=== PATIENT | female | born 1990 | race Caucasian/White ===

== ENCOUNTER 2020-10-05 18:06 | Emergency (ER) | payer OTHER ==
--- NOTE | 2020-10-05 18:09 | ERPHSYRPT ---
- History of Present Illness Time Seen by Provider: 10/05/20 18:08 Historian: patient Exam Limitations: no limitations Physician History: This is an anxious overweight 29-year-old white female with a history of asthma who smokes approximately 3 cigarettes a day and has a family history of coronary artery disease and presents with chest pain that began yesterday at 9 AM. Patient herself has never been diagnosed with any cardiac disease. She is not short of breath. She has had no fever or chills. She has no abdominal pain. She has no nausea vomiting or diarrhea. Her chest pain is described as an ache that is central substernal and nonradiating. Patient has been up and active in terms of walking and standing but has not been exerting herself. Patient states that she has had chest pains in the past but never this type of chest pain that is lasted for so long. She has no cough Timing/Duration: yesterday Quality: aching Location: substernal, central Chest Pain Radiation: no radiation Severity of Pain-Max: moderate Severity of Pain-Current: mild Modifying Factors: Improves With: nothing Associated Symptoms: denies symptoms Prior Chest Pain/Cardiac Workup: no prior chest pain, no prior cardiac workup Nitro Today/Relief: no nitro taken today Aspirin Treatment Today: no aspirin today Allergies/Adverse Reactions: adhesive tape Allergy (Verified 10/05/20 18:16) Hives amoxicillin Allergy (Verified 10/05/20 18:16) Tightness of Throat Penicillins Allergy (Verified 10/05/20 18:16) Tightness of Throat tramadol Allergy (Verified 10/05/20 18:16) Swelling of Tongue and Lips Home Medications: Albuterol 2.5 mg/3 ml Neb [Proventil 2.5 mg/3 ml Neb] 2.5 mg IH DAILY PRN PRN 10/05/20 [History] Albuterol 8 gm Mdi Hfa [Ventolin Hfa MDI] 8 gm IH DAILY PRN PRN 10/05/20 [History] Budesonide/Formoterol Fumarate [Symbicort 80-4.5 Mcg Inhaler] 10.2 gm IH DAILY PRN PRN 10/05/20 [History] Travel Risk - International Travel Have you traveled outside of the country in past 3 weeks: No - Coronavirus Screening Are you exhibiting any of the following symptoms?: No Close contact with a COVID-19 positive Pt in past 14-21 Days: No - Review of Systems Constitutional: No Symptoms Eyes: No Symptoms Ears, Nose, & Throat: No Symptoms Respiratory: No Symptoms Cardiac: Chest Pain Abdominal/Gastrointestinal: No Symptoms Genitourinary Symptoms: No Symptoms Musculoskeletal: No Symptoms Skin: No Symptoms Neurological: No Symptoms Psychological: No Symptoms Endocrine: No Symptoms Hematologic/Lymphatic: No Symptoms Immunological/Allergic: No Symptoms All Other Systems: Reviewed and Negative - Past Medical History Pertinent Past Medical History: Yes Respiratory History: Asthma Endocrine Medical History: No Pertinent History Musculoskeletal History: No Pertinent History GI Medical History: No Pertinent History History: No Pertinent History Psycho-Social History: No Pertinent History Female Reproductive Disorders: No Pertinent History - Past Surgical History Past Surgical History: Yes - Nursing Vital Signs Nursing Vital Signs: Initial Vital Signs Temperature 97.1 F 10/05/20 18:08 Pulse Rate 70 10/05/20 18:08 Pain Scale Pain Intensity 8 - Physical Exam General Appearance: no apparent distress, alert, anxiety, obese Eye Exam: PERRL/EOMI, eyes nml inspection Ears, Nose, Throat Exam: normal ENT inspection, moist mucous membranes Neck Exam: normal inspection, non-tender, supple, full range of motion Respiratory Exam: normal breath sounds, chest tenderness, lungs clear, airway i ntact, No respiratory distress Cardiovascular Exam: regular rate/rhythm, normal heart sounds, normal peripheral pulses Gastrointestinal/Abdomen Exam: soft, normal bowel sounds, No tenderness Pelvic Exam: not done Rectal Exam: not done Back Exam: normal inspection, normal range of motion, No CVA tenderness, No vertebral tenderness Extremity Exam: normal inspection, normal range of motion, pelvis stable Neurologic Exam: alert, oriented x 3, cooperative, practice specialist II-XII nml as tested, normal mood/affect, nml cerebellar function, nml station & gait, sensation nml Skin Exam: normal color, warm, dry Lymphatic Exam: No adenopathy SpO2 Interpretation: normal O2 Delivery: Room Air - Course Nursing assessment & vital signs reviewed: Yes EKG Interpreted by Me: RATE (70), Sinus Rhythm, NORMAL AXIS, NORMAL INTERVALS, NORMAL QRS, NORMAL ST-T, Other (No acute ischemic changes. No comparison EKG available.) Ordered Tests: Active Orders 24 hr Category Date Time Status Area Loss Prevention Manager STAT Care 10/05/20 18:20 Active EKG-ER Only STAT Care 10/05/20 18:20 Active IV Insertion STAT Care 10/05/20 18:20 Active Pulse Oximetry (ED) STAT Care 10/05/20 18:20 Active CHEST 1 VIEW (PORTABLE) Stat Exams 10/05/20 18:20 Taken CBC W DIFF Stat Lab 10/05/20 18:42 Completed CMP Stat Lab 10/05/20 18:42 Completed D-DIMER QUANTITATIVE Stat Lab 10/05/20 18:42 Completed NT PRO BNP Stat Lab 10/05/20 18:42 Completed PROTIME WITH INR Stat Lab 10/05/20 18:42 Completed TROPONIN Q3H Lab 10/05/20 18:42 Completed TROPONIN Q3H Lab 10/05/20 21:30 Ordered TROPONIN Q3H Lab 10/06/20 00:30 Ordered TROPONIN Q3H Lab 10/06/20 03:30 Ordered TROPONIN Q3H Lab 10/06/20 06:30 Ordered Medication Summary Discontinued Medications Generic Name Dose Route Start Last Admin Trade Name Freq PRN Reason Stop Dose Admin Aspirin 324 mg 10/05/20 18:20 10/05/20 18:28 Baby Aspirin 81 Mg Chew PO 10/05/20 18:21 324 mg STAT ONE Administration Aspirin Confirm 10/05/20 18:27 Baby Aspirin 81 Mg Chew Administered 10/05/20 18:28 Dose 324 mg .ROUTE .STK-MED ONE Lab/Rad Data: Laboratory Result Diagrams 10/05/20 18:42 10/05/20 18:42 Laboratory Results 10/05/20 10/05/20 10/05/20 Range/Units 18:42 18:42 18:42 WBC (4.0-10.5) K/mm3 RBC (4.1-5.4) M/mm3 Hgb (12.0-16.0) gm/dl Hct (35-47) % MCV (78-100) fl MCH (26-32) pg MCHC (32-36) g/dl RDW (11.5-14.0) % Plt Count (150-450) K/mm3 MPV (7.5-11.0) fl Gran % (36.0-66.0) % Eos # (Auto) (0-0.5) Absolute Lymphs (auto) (1.0-4.6) Absolute Monos (auto) (0.0-1.3) Lymphocytes % (24.0-44.0) % Monocytes % (0.0-12.0) % Eosinophils % (0.00-5.0) % Basophils % (0.0-0.4) % Absolute Granulocytes (1.4-6.9) Basophils # (0-0.4) PT 14.0 H (9.95-12.35) SECONDS INR 1.24 (0.8-3.0) D-Dimer 259 (215-500) ng/mL Sodium 137 (137-145) mmol/L Potassium 3.9 (3.5-5.1) mmol/L Chloride 110 H (98-107) mmol/L Carbon Dioxide 18 L (22-30) mmol/L Anion Gap 13.5 (5-15) MEQ/L BUN 11 (7-17) mg/dL Creatinine 0.60 (0.52-1.04) mg/dL Estimated GFR > 60.0 ML/MIN Glucose 106 (74-106) mg/dL Calcium 8.9 (8.4-10.2) mg/dL Total Bilirubin 0.40 (0.2-1.3) mg/dL AST 56 H (14-36) U/L ALT 100 H (0-35) U/L Alkaline Phosphatase 77 (38-126) U/L Troponin I < 0.012 (0.000-0.034) ng/mL NT-Pro-B Natriuret Pep 56.9 (0-450) pg/mL Serum Total Protein 6.9 (6.3-8.2) g/dL Albumin 4.3 (3.5-5.0) g/dL 10/05/20 Range/Units 18:42 WBC 8.7 (4.0-10.5) K/mm3 RBC 4.24 (4.1-5.4) M/mm3 Hgb 11.7 L (12.0-16.0) gm/dl Hct 37.5 (35-47) % MCV 88.4 (78-100) fl MCH 27.6 (26-32) pg MCHC 31.2 L (32-36) g/dl RDW 16.0 H (11.5-14.0) % Plt Count 283 (150-450) K/mm3 MPV 10.3 (7.5-11.0) fl Gran % 64.7 (36.0-66.0) % Eos # (Auto) 0.31 (0-0.5) Absolute Lymphs (auto) 1.71 (1.0-4.6) Absolute Monos (auto) 1.01 (0.0-1.3) Lymphocytes % 19.7 L (24.0-44.0) % Monocytes % 11.7 (0.0-12.0) % Eosinophils % 3.6 (0.00-5.0) % Basophils % 0.3 (0.0-0.4) % Absolute Granulocytes 5.60 (1.4-6.9) Basophils # 0.03 (0-0.4) PT (9.95-12.35) SECONDS INR (0.8-3.0) D-Dimer (215-500) ng/mL Sodium (137-145) mmol/L Potassium (3.5-5.1) mmol/L Chloride (98-107) mmol/L Carbon Dioxide (22-30) mmol/L Anion Gap (5-15) MEQ/L BUN (7-17) mg/dL Creatinine (0.52-1.04) mg/dL Estimated GFR ML/MIN Glucose (74-106) mg/dL Calcium (8.4-10.2) mg/dL Total Bilirubin (0.2-1.3) mg/dL AST (14-36) U/L ALT (0-35) U/L Alkaline Phosphatase (38-126) U/L Troponin I (0.000-0.034) ng/mL NT-Pro-B Natriuret Pep (0-450) pg/mL Serum Total Protein (6.3-8.2) g/dL Albumin (3.5-5.0) g/dL - Progress Progress: improved, re-examined Air Movement: good Progress Note: 10/05/20 19:18 Chest x-ray left mediastinal early infiltrate versus increased markings Blood Culture(s) Obtained: No Antibiotics given: No Counseled pt/family regarding: lab results, diagnosis, need for follow-up, rad results - Departure Departure Disposition: Home Clinical Impression: Non-cardiac chest pain, Infiltrate of left lung present on chest x-ray Condition: Stable Critical Care Time: No Referrals: DOCTOR,NO FAMILY [Primary Care Provider] - Additional Instructions: Drink plenty of fluids. Take your medication as prescribed. Follow-up with your primary care physician for further management and evaluation. Stop smoking. Do not expose yourself to any type of smoke. Prescriptions: Cefdinir 300 mg PO BID 7 Days #14 capsule
[2020-10-05 18:16] VITALS: PULSE 70
[2020-10-05] MEDS ORDERED: BABY ASPIRIN 81 MG CHEW ONE (18:27)
[2020-10-05] MEDS: BABY ASPIRIN 81 MG CHEW PO ONE (18:28)
[2020-10-05 18:45] LABS: BASOPHIL % 0.3 % (0.0-0.4); Basophil (Absolute #) 0.03 (0-0.4); Eosinophil % 3.6 % (0.00-5.0); Eosinophil (Absolute #) 0.31 (0-0.5); Hematocrit 37.5 % (35-47); Hemoglobin 11.7 gm/dl (12.0-16.0); Lymphocyte (Absolute #) 1.71 (1.0-4.6); Lymphocytes % 19.7 % (24.0-44.0); Mean Cell Volume 88.4 fl (78-100); Mean Corpuscular Hemoglobin 27.6 pg (26-32); Mean Corpuscular Hgb Concent. 31.2 g/dl (32-36); Mean Platelet Volume 10.3 fl (7.5-11.0); Monocyte (Absolute #) 1.01 (0.0-1.3); Monocytes % 11.7 % (0.0-12.0); Neutrophil % 64.7 % (36.0-66.0); Platelet Count 283 K/mm3 (150-450); Red Blood Count 4.24 M/mm3 (4.1-5.4); White Blood Count 8.7 K/mm3 (4.0-10.5)
[2020-10-05 18:55] LABS: INR 1.24 (0.8-3.0)
[2020-10-05 19:09] LABS: ALBUMIN 4.3 g/dL (3.5-5.0); ALKALINE PHOSPHATASE 77 U/L (38-126); ANION GAP 13.5 MEQ/L (5-15); BLOOD UREA NITROGEN 11 mg/dL (7-17); CHLORIDE 110 mmol/L (98-107); Calcium 8.9 mg/dL (8.4-10.2); Carbon Dioxide 18 mmol/L (22-30); EST GLOMERULAR FILTRATION RATE > 60.0 ML/MIN; Glucose 106 mg/dL (74-106); NT PRO BNP 56.9 pg/mL (0-450); Potassium 3.9 mmol/L (3.5-5.1); SGOT/AST 56 U/L (14-36); SGPT/ALT 100 U/L (0-35); SODIUM 137 mmol/L (137-145); Total Protein 6.9 g/dL (6.3-8.2)
[2020-10-05 19:22] VITALS: O2SAT 98
[2020-10-05] MEDS ORDERED: ROCEPHIN 1 Gm-D5w 50 ml Bag** 1 G/50 ML IVPB IV ONE (19:32)
[2020-10-05] MEDS: ROCEPHIN 1 Gm-D5w 50 ml Bag** 1 G/50 ML IVPB IV STA (19:34)
--- NOTE | 2020-10-06 08:38 | XRAY ---
Indication: Chest pain. Comparison: None Portable chest demonstrates hazy left lung air space opacity without consolidation/large effusion. Remaining heart and bony thorax normal.
== END 2020-10-05 20:07 | disposition home or self-care (01) ==
LOC: ED 18:06
DX: R07.89 Other chest pain (principal); R91.8 Other nonspecific abnormal finding of lung field
CPT/HCPCS: 36000; 36415; 71045; 80053; 83880; 84484; 85025; 85379; 85610; 93005; 93041; 94760; 96365; 99284; J0696; A9270-GY

== ENCOUNTER 2020-10-11 01:34 | Emergency (ER) | payer OTHER ==
--- NOTE | 2020-10-11 02:21 | ERPHSYRPT ---
- History of Present Illness Source: patient Exam Limitations: no limitations Patient Subjective Stated Complaint: pt states she fell and landed on her rt hand with her knee. states she has pain in her rt wrsit, hand, and middle finger Triage Nursing Assessment: pt alert and oriented, answers questions approp. pt ambulatory with steady gait noted. respirations nonlabored. skin warm and dry. no bruising or swelling noted to rt hand and wrist. cap refill and radial pulse wnl. Physician History: 29 yo wf w R wrist/R 3rd digit pain after tripping over dog at home prior to arrival. Pt is R handed and denies previous/other injuries. Occurred: just prior to arrival Method of Injury: fell Quality: constant Severity of Pain-Max: moderate Severity of Pain-Current: moderate Extremities Pain Location: wrist: right, 3rd finger: right Modifying Factors: Improves With: movement Associated Symptoms: none Allergies/Adverse Reactions: adhesive tape Allergy (Verified 10/05/20 18:16) Hives amoxicillin Allergy (Verified 10/05/20 18:16) Tightness of Throat Penicillins Allergy (Verified 10/05/20 18:16) Tightness of Throat tramadol Allergy (Verified 10/05/20 18:16) Swelling of Tongue and Lips Home Medications: Albuterol 2.5 mg/3 ml Neb [Proventil 2.5 mg/3 ml Neb] 2.5 mg IH DAILY PRN PRN 10/05/20 [History] Albuterol 8 gm Mdi Hfa [Ventolin Hfa MDI] 8 gm IH DAILY PRN PRN 10/05/20 [History] Budesonide/Formoterol Fumarate [Symbicort 80-4.5 Mcg Inhaler] 10.2 gm IH DAILY PRN PRN 10/05/20 [History] Hx Tetanus, Diphtheria Vaccination/Date Given: Yes Hx Influenza Vaccination/Date Given: No Hx Pneumococcal Vaccination/Date Given: No Immunizations Up to Date: Yes Travel Risk - International Travel Have you traveled outside of the country in past 3 weeks: No - Coronavirus Screening Are you exhibiting any of the following symptoms?: No Close contact with a COVID-19 positive Pt in past 14-21 Days: No - Vaccine Status Have you recieved a Covid-19 vaccination: No - Review of Systems Constitutional: No Symptoms Eyes: No Symptoms Ears, Nose, & Throat: No Symptoms Respiratory: No Symptoms Cardiac: No Symptoms Abdominal/Gastrointestinal: No Symptoms Genitourinary Symptoms: No Symptoms Skin: No Symptoms Neurological: No Symptoms Psychological: No Symptoms Endocrine: No Symptoms Hematologic/Lymphatic: No Symptoms Immunological/Allergic: No Symptoms - Past Medical History Pertinent Past Medical History: Yes Respiratory History: Asthma, COPD Endocrine Medical History: No Pertinent History Musculoskeletal History: No Pertinent History GI Medical History: No Pertinent History History: No Pertinent History Psycho-Social History: Anxiety Female Reproductive Disorders: No Pertinent History Other Medical History: PTSD, severe anxiety - Past Surgical History Past Surgical History: Yes Gastrointestinal: Cholecystectomy Female Surgical History: Other Other Surgical History: tubal clamps - Social History Smoking Status: Current every day smoker How long have you smoked: years Exposure to second hand smoke: No Drug Use: none Patient Lives Alone: No Significant Family History: no pertinent family hx - Female History Hx Last Menstrual Period: current Hx Now: No - Nursing Vital Signs Nursing Vital Signs: Initial Vital Signs Temperature 98.1 F 10/11/20 01:46 Pulse Rate 71 10/11/20 01:46 Respiratory Rate 16 10/11/20 01:46 Blood Pressure 124/76 10/11/20 01:46 O2 Sat by Pulse Oximetry 100 10/11/20 01:46 Pain Scale Pain Intensity 5 - Physical Exam General Appearance: no apparent distress Eyes, Ears, Nose, Throat Exam: normal ENT inspection Neck Exam: normal inspection (No C-spine TTP) Cardiovascular/Respiratory Exam: normal breath sounds, regular rate/rhythm Back Exam: normal inspection (No T/L-spine TTP) Shoulder Exam: normal inspection Elbow/Forearm Exam: normal inspection Wrist Exam: normal inspection (R distal radius ttp/No edema/No deformity/Good radial pulse, distal sensation, and capillary return/R 3rd digit ttp PIP, minimal edema, no erythema, no ecchymotic areas, good distal capillary return and sensation) Neuro/Tendon Exam: normal sensation, normal motor functions, normal tendon functions, responds to pain Mental Status Exam: alert, oriented x 3, cooperative Skin Exam: normal color, warm, dry SpO2 Interpretation: normal SpO2: 100 O2 Delivery: Room Air - Course Nursing assessment & vital signs reviewed: Yes - Radiology Exams Wrist X-ray Interpretation: Interpreted by me (R wrist neg per ER read) Hand X-ray Interpretation: Interpreted by me (R hand neg per ER read) Ordered Tests: Active Orders 24 hr Category Date Time Status [facility] 10/11/20 02:27 Completed Splint STAT Care 10/11/20 02:28 Completed HAND (MINIMUM 3 VIEWS) Stat Exams 10/11/20 02:22 Taken WRIST (MIN 3 VIEWS) Stat Exams 10/11/20 02:21 Taken Medication Summary Discontinued Medications Generic Name Dose Route Start Last Admin Trade Name Chantal PRN Reason Stop Dose Admin Ketorolac Tromethamine 60 mg 10/11/20 02:27 10/11/20 02:58 Toradol 30 Mg Injection IM 10/11/20 02:28 60 mg STAT ONE Administration Ketorolac Tromethamine Confirm 10/11/20 02:46 Toradol 30 Mg Injection Administered 10/11/20 02:47 Dose 60 mg .ROUTE .STK-MED ONE - Progress Progress Note: 10/11/20 02:29 60mg IM Toradol Mark wrap R wrist/Hand per nursing/NVI 10/11/20 03:18 Finger splint R 3rd digit per nursing/NVI Counseled pt/family regarding: need for follow-up, rad results - Departure Departure Disposition: Extended Care Facility Clinical Impression: Right wrist sprain, Finger contusion Condition: Stable Critical Care Time: No Referrals: DOCTOR,NO FAMILY [Primary Care Provider] - KAREN DEY AUTOMATION AND CONTROLS SUPERVISOR [NON-STAFF PHY W/O PRIVILEGES] - Instructions: Wrist Sprain (DC), Common Finger Injuries (DC) Additional Instructions: Ice for 12-24 hours Toradol as needed for pain Mark wrap for 3-4 days Finger splint for 3-4 days Return to ER as needed Prescriptions: Ketorolac Tromethamine [Toradol] 10 mg PO TID PRN #10 tablet PRN Reason: Pain
[2020-10-11] MEDS ORDERED: TORAdol 30 mg Injection IM ONE (02:27)
[2020-10-11] MEDS ORDERED: TORAdol 30 mg Injection ONE (02:46)
[2020-10-11 03:08] VITALS: BP 110/68; PULSE 67
[2020-10-11 03:19] VITALS: O2SAT 100
--- NOTE | 2020-10-11 07:28 | XRAY ---
Indication: Pain following fall. Comparison: None 3 view right wrist obtained. No bony, articular, or soft tissue abnormalities.
--- NOTE | 2020-10-11 07:28 | XRAY ---
Indication: Pain following fall. Comparison: None 3 view right hand obtained. No bony, articular, or soft tissue abnormalities.
== END 2020-10-11 03:08 | disposition home or self-care (01) ==
LOC: ED 01:34
DX: S60.031A Contusion of right middle finger without damage to nail, initial encounter (principal); W01.198A Fall on same level from slipping, tripping and stumbling with subsequent striking against other object, initial encounter; Y93.K1 Activity, walking an animal; Y92.89 Other specified places as the place of occurrence of the external cause
CPT/HCPCS: 73110; 73130; 96372; 99284; J1885

== ENCOUNTER 2021-02-14 21:29 | Emergency (ER) | payer OTHER ==
--- NOTE | 2021-02-14 22:14 | ERPHSYRPT ---
- History of Present Illness Time Seen by Provider: 02/14/21 22:14 Source: patient Patient Subjective Stated Complaint: pt states she has been having rib pain off and on for the last few months. states today her pain was not relieved with ibuprofen Triage Nursing Assessment: pt alert and oriented, answers questions approp. pt ambulatory with steady gait noted. respirations nonlabored with lungs cta. occasional moist cough noted. skin warm and dry. Physician History: This is an obese 30-year-old white female patient of Karen Guzman who sent September 2020 has had left lateral rib pain. She denies trauma to this area. Patient is a current daily smoker of cigarettes. She has a history of asthma, COPD, PTSD and severe anxiety. Patient was seen by her primary care provider in the past and she was scheduled to have a chest x-ray performed but never did follow-up to obtain it. Timing/Duration: other (Since September 2020) Cough Quality/Degree: mild Possible Cause: frequent episodes Associated Symptoms: other Allergies/Adverse Reactions: adhesive tape Allergy (Verified 02/14/21 21:41) Hives amoxicillin Allergy (Verified 02/14/21 21:41) Tightness of Throat Penicillins Allergy (Verified 02/14/21 21:41) Tightness of Throat tramadol Allergy (Verified 02/14/21 21:41) Swelling of Tongue and Lips Home Medications: Albuterol 2.5 mg/3 ml Neb [Proventil 2.5 mg/3 ml Neb] 2.5 mg IH DAILY PRN PRN 10/05/20 [History] Albuterol 8 gm Mdi Hfa [Ventolin Hfa MDI] 8 gm IH DAILY PRN PRN 10/05/20 [History] Budesonide/Formoterol Fumarate [Symbicort 80-4.5 Mcg Inhaler] 10.2 gm IH DAILY PRN PRN 10/05/20 [History] Hx Tetanus, Diphtheria Vaccination/Date Given: Yes Hx Influenza Vaccination/Date Given: No Hx Pneumococcal Vaccination/Date Given: No Immunizations Up to Date: Yes Travel Risk - International Travel Have you traveled outside of the country in past 3 weeks: No - Coronavirus Screening Are you exhibiting any of the following symptoms?: No Close contact with a COVID-19 positive Pt in past 14-21 Days: No - Vaccine Status Have you recieved a Covid-19 vaccination: No - Review of Systems Constitutional: No Symptoms Eyes: No Symptoms Ears, Nose, & Throat: No Symptoms Respiratory: No Symptoms Cardiac: No Symptoms Abdominal/Gastrointestinal: No Symptoms Genitourinary Symptoms: No Symptoms Musculoskeletal: Other (Left rib pain) Skin: No Symptoms Neurological: No Symptoms Psychological: No Symptoms Endocrine: No Symptoms Hematologic/Lymphatic: No Symptoms Immunological/Allergic: No Symptoms All Other Systems: Reviewed and Negative - Past Medical History Pertinent Past Medical History: Yes Respiratory History: Asthma, Bronchitis, COPD Endocrine Medical History: No Pertinent History Musculoskeletal History: No Pertinent History GI Medical History: No Pertinent History History: No Pertinent History Psycho-Social History: Anxiety Female Reproductive Disorders: No Pertinent History Other Medical History: PTSD, severe anxiety - Past Surgical History Past Surgical History: Yes Gastrointestinal: Cholecystectomy Female Surgical History: Other Other Surgical History: tubal clamps - Social History Smoking Status: Current every day smoker How long have you smoked: years Exposure to second hand smoke: No Drug Use: none Patient Lives Alone: No Significant Family History: no pertinent family hx - Female History Hx Last Menstrual Period: current Hx Now: No - Nursing Vital Signs Nursing Vital Signs: Initial Vital Signs Temperature 98.1 F 02/14/21 21:42 Pulse Rate 83 02/14/21 21:42 Respiratory Rate 18 02/14/21 21:42 Blood Pressure 118/92 02/14/21 21:42 O2 Sat by Pulse Oximetry 99 02/14/21 21:42 Pain Scale Pain Intensity 8 - Physical Exam General Appearance: no apparent distress, alert, anxiety Eye Exam: PERRL/EOMI, eyes nml inspection Ears, Nose, Throat Exam: normal ENT inspection, moist mucous membranes Neck Exam: normal inspection, non-tender, supple, full range of motion Respiratory Exam: normal breath sounds, lungs clear, airway intact, diminished breath sounds, No chest tenderness, No respiratory distress Cardiovascular Exam: regular rate/rhythm, normal heart sounds, normal peripheral pulses Gastrointestinal/Abdomen Exam: soft, normal bowel sounds, No tenderness Pelvic Exam: not done Rectal Exam: not done Back Exam: normal inspection, normal range of motion, No CVA tenderness, No vertebral tenderness Extremity Exam: normal inspection, normal range of motion, pelvis stable Neurologic Exam: alert, oriented x 3, cooperative, 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, normal mood/affect, nml cerebellar function, nml station & gait, sensation nml Skin Exam: normal color, warm, dry Lymphatic Exam: No adenopathy SpO2 Interpretation: normal SpO2: 99 O2 Delivery: Room Air - Course Nursing assessment & vital signs reviewed: Yes Ordered Tests: Active Orders 24 hr Category Date Time Status CHEST 1 VIEW (PORTABLE) Stat Exams 02/14/21 22:14 Ordered Medication Summary Generic Name Dose Route Start Last Admin Trade Name Chantal PRN Reason Stop Dose Admin Hydrocodone Bitart/Acetaminophen 1 tab 02/14/21 22:41 [place] 5/325 Mg PO 02/14/21 22:42 STAT ONE Methylprednisolone Sodium 0 mg 02/14/21 22:41 Succinate 125 mg/ Sterile IM 02/14/21 22:42 Water 2 ml STAT ONE Orphenadrine Citrate 60 mg 02/14/21 22:42 Norflex 60 Mg/2 Ml IM 02/14/21 22:43 STAT ONE - Progress Progress: re-examined, unchanged Air Movement: good Progress Note: 02/14/21 22:48 Chest x-ray shows no acute cardiopulmonary process. No obvious rib fractures Counseled pt/family regarding: diagnosis, need for follow-up, rad results - Departure Departure Disposition: Home Clinical Impression: Rib pain on left side, Musculoskeletal pain Condition: Stable Critical Care Time: No Referrals: KAREN EDWARD PAPER [employer] DRYING MACHINE OPERATOR [Primary Care Provider] - Additional Instructions: Take medication as prescribed. Follow-up with your primary provider on 02/16/2021, Prescriptions: Cyclobenzaprine HCl 10 mg [Cyclobenzaprine 10 MG] 10 mg PO TID #10 tablet Prednisone 10 mg [Deltasone 10 mg] 10 mg PO TID #12 tablet
[2021-02-14] MEDS ORDERED: NORCO 5/325 MG PO ONE (22:41)
[2021-02-14] MEDS ORDERED: solu-MEDROL 125 MG, Sterile H2O 10 ml 2 ML IM ONE ×2 (22:41)
[2021-02-14] MEDS ORDERED: Norflex 60 MG/2 ML IM ONE (22:42)
[2021-02-14] MEDS ORDERED: Norflex 60 MG/2 ML ONE (22:49)
[2021-02-14] MEDS ORDERED: NORCO 5/325 MG ONE (22:50)
[2021-02-14] MEDS ORDERED: Sterile H2O 10 ml IJ ONE (22:50)
[2021-02-14] MEDS ORDERED: solu-MEDROL ONE (22:50)
[2021-02-14 23:15] VITALS: BP 121/78; PULSE 88; O2SAT 98
--- NOTE | 2021-02-15 07:52 | XRAY ---
Indication: Cough and rib pain. Comparison: October 05, 2020. Portable chest less inflated and clear. Heart is not enlarged. Bony thorax intact. No new/acute findings.
== END 2021-02-14 23:14 | disposition home or self-care (01) ==
LOC: ED 21:29
DX: R07.81 Pleurodynia (principal); M79.18 Myalgia, other site
CPT/HCPCS: 71045; 96372; 99284; J2360; J2930; A9270-GY

== ENCOUNTER 2021-06-22 02:17 | Emergency (ER) | payer OTHER ==
[2021-06-22] MEDS ORDERED: DUONEB 0.5-3 MG/3 ml Neb IH ONE ×4 (02:32→04:07)
[2021-06-22] MEDS ORDERED: Pepcid 20 MG VIAL IV ONE ×2 (02:32→02:47)
[2021-06-22] MEDS ORDERED: solu-MEDROL 125 MG, Sterile H2O 10 ml 2 ML IV ONE ×2 (02:32)
[2021-06-22] MEDS ORDERED: Sodium Chloride 0.9% 1000 ML 1,000 ML IV SCH (02:45)
[2021-06-22] MEDS ORDERED: Sterile H2O 10 ml IJ ONE (02:47)
[2021-06-22] MEDS ORDERED: solu-MEDROL ONE (02:47)
[2021-06-22] MEDS ORDERED: Sodium Chloride 0.9% 1000 ML 1,000 ML ONE (02:47)
[2021-06-22 02:50] LABS: Absolute Neutrophil Ct (ANC) 5.44 (1.4-6.9); Basophil (Absolute #) 0.03 (0-0.4); Eosinophil (Absolute #) 0.39 (0-0.5); Hematocrit 36.6 % (35-47); Hemoglobin 11.8 gm/dl (12.0-16.0); Lymphocyte (Absolute #) 2.82 (1.0-4.6); Lymphocytes % 29.3 % (24.0-44.0); Mean Cell Volume 89.3 fl (78-100); Mean Corpuscular Hemoglobin 28.8 pg (26-32); Mean Corpuscular Hgb Concent. 32.2 g/dl (32-36); Mean Platelet Volume 10.2 fl (7.5-11.0); Monocyte (Absolute #) 0.96 (0.0-1.3); Neutrophil % 56.4 % (36.0-66.0); Platelet Count 301 K/mm3 (150-450); Red Cell Distribution Width 15.2 % (11.5-14.0); White Blood Count 9.6 K/mm3 (4.0-10.5)
--- NOTE | 2021-06-22 03:00 | ERPHSYRPT ---
- History of Present Illness Time Seen by Provider: 06/22/21 02:55 Source: patient Exam Limitations: no limitations Patient Subjective Stated Complaint: cough, headache, sob Triage Nursing Assessment: pt c/o cough, headache, sob. Pt was positive for covid on 06/03/21 and hasn't been able to get rid of the cough or sob. Pt c/o mid sternal chest pain, stating "it feels like someone is using it as a punching bag". Lungs clear ant and post, dry, hacking non-prod cough. Physician History: pt is SP Covid testing + on Jun 03, but having persisting cough and SOBreath tonight with prior history of chronic resp condition Asthma/COPD and Tx AB for 'pneumonia' about 2 weeks ago as well. CHest clear. No prior known ht Dx , but + family Hx No N/V, No abd pain. No Hx trauma. NO swelling or erythema of ext. Neg homans. Timing/Duration: today (short of breath today.), day(s) (cough for days) Activities at Onset: none Severity of Dyspnea-Max: moderate Severity of Dyspnea-Current: moderate Possible Cause: frequent episodes, chronic episodes Modifying Factors: Improves With: coughing Associated Symptoms: cough, chest pain/discomfort Allergies/Adverse Reactions: adhesive tape Allergy (Verified 06/22/21 02:39) Hives paper tape amoxicillin Allergy (Verified 06/22/21 02:39) Tightness of Throat Penicillins Allergy (Verified 06/22/21 02:39) Tightness of Throat tramadol Allergy (Verified 06/22/21 02:39) Swelling of Tongue and Lips Home Medications: Albuterol 2.5 mg/3 ml Neb [Proventil 2.5 mg/3 ml Neb] 2.5 mg IH DAILY PRN PRN 10/05/20 [History] Albuterol 8 gm Mdi Hfa [Ventolin Hfa MDI] 8 gm IH DAILY PRN PRN 10/05/20 [History] Budesonide/Formoterol Fumarate [Symbicort 80-4.5 Mcg Inhaler] 10.2 gm IH DAILY PRN PRN 10/05/20 [History] Hx Tetanus, Diphtheria Vaccination/Date Given: Yes Hx Influenza Vaccination/Date Given: No Hx Pneumococcal Vaccination/Date Given: No Immunizations Up to Date: Yes Travel Risk - International Travel Have you traveled outside of the country in past 3 weeks: No - Coronavirus Screening Are you exhibiting any of the following symptoms?: Yes Symptoms: Cough: New Onset, Shortness of Breath, Headaches/Body Aches/Fatigue Close contact with a COVID-19 positive Pt in past 14-21 Days: No - Vaccine Status Have you recieved a Covid-19 vaccination: No - Review of Systems Constitutional: No Fever, No Chills Eyes: No Symptoms Ears, Nose, & Throat: No Symptoms Respiratory: Cough, Dyspnea Cardiac: Chest Pain, No Edema, No Syncope Abdominal/Gastrointestinal: No Abdominal Pain, No Nausea, No Vomiting, No Diarrhea Genitourinary Symptoms: No Dysuria Musculoskeletal: No Back Pain, No Neck Pain Skin: No Rash Neurological: No Dizziness, No Focal Weakness, No Sensory Changes Psychological: No Symptoms Endocrine: No Symptoms All Other Systems: Reviewed and Negative - Past Medical History Pertinent Past Medical History: Yes Neurological History: No Pertinent History Respiratory History: Asthma, Bronchitis, COPD, Pneumonia Endocrine Medical History: No Pertinent History Musculoskeletal History: No Pertinent History GI Medical History: No Pertinent History History: No Pertinent History Psycho-Social History: Anxiety Female Reproductive Disorders: No Pertinent History Other Medical History: PTSD, severe anxiety - Past Surgical History Past Surgical History: Yes Gastrointestinal: Cholecystectomy Female Surgical History: Other Other Surgical History: tubal clamps - Social History Smoking Status: Current every day smoker How long have you smoked: 19 years Exposure to second hand smoke: Yes Drug Use: none Patient Lives Alone: No Significant Family History: no pertinent family hx - Female History Hx Last Menstrual Period: 06/20/21 Hx Now: No (HCG pending) - Nursing Vital Signs Nursing Vital Signs: Initial Vital Signs Respiratory Rate 22 06/22/21 02:26 O2 Sat by Pulse Oximetry 100 06/22/21 02:26 Pain Scale Pain Intensity 3 - Physical Exam General Appearance: no apparent distress, alert Eye Exam: PERRL/EOMI Ears, Nose, Throat Exam: hearing grossly normal, normal ENT inspection Neck Exam: normal inspection, supple Respiratory Exam: lungs clear, airway intact Cardiovascular/Chest Exam: normal heart sounds, regular rate/rhythm Abdominal/Gastrointestinal Exam: soft, No tenderness, No distention, No mass Rectal Exam: deferred Extremity Exam: non-tender, normal range of motion, normal inspection, no calf tenderness, no pedal edema Peripheral Pulses Exam: carotid (R): 2+, carotid (L): 2+, femoral (R): 2+, femoral (L): 2+, dorsalis-pedis (R): 2+, dorsalis-pedis (L): 2+ Neurologic Exam: alert, oriented x 3, cooperative, asset accountant II-XII nml as tested, normal mood/affect, nml cerebellar function, nml station & gait, sensation nml, No motor deficits Skin Exam: normal color, warm, No dry SpO2 Interpretation: normal SpO2: 99 O2 Delivery: Room Air - Course Nursing assessment & vital signs reviewed: Yes EKG Interpreted by Me: Sinus Rhythm, NORMAL AXIS, NORMAL INTERVALS, Non-specific ST Changes - Radiology Exams Chest X-ray Interpretation: Reviewed by me, Infiltrates (patchy), Other (left lung nodule) Ordered Tests: Active Orders 24 hr Category Date Time Status Commercial Loan Collection Officer STAT Care 06/22/21 02:36 Active EKG-ER Only STAT Care 06/22/21 02:32 Active IV Insertion STAT Care 06/22/21 02:32 Active Pulse Oximetry (ED) STAT Care 06/22/21 02:32 Active CHEST 1 VIEW (PORTABLE) Stat Exams 06/22/21 02:33 Taken CBC W DIFF Stat Lab 06/22/21 02:46 Completed CMP Stat Lab 06/22/21 02:46 Completed CULTURE,URINE Stat Lab 06/22/21 03:28 Received D-DIMER QUANTITATIVE Stat Lab 06/22/21 02:46 Completed HCG QUALITATIVE,SERUM Stat Lab 06/22/21 02:46 Completed INFLUENZA A+B HARRIS Stat Lab 06/22/21 02:46 Completed LIPASE Stat Lab 06/22/21 02:46 Completed Lactic Acid Stat Lab 06/22/21 02:57 Completed NT PRO BNP Stat Lab 06/22/21 02:46 Completed TROPONIN Q3H Lab 06/22/21 02:46 Completed TROPONIN Q3H Lab 06/22/21 05:45 Ordered TROPONIN Q3H Lab 06/22/21 08:45 Ordered TROPONIN Q3H Lab 06/22/21 11:45 Ordered TROPONIN Q3H Lab 06/22/21 14:45 Ordered UA W/RFX UR CULTURE Stat Lab 06/22/21 03:28 Completed Respiratory Therapy Assessment DAILY RT 06/22/21 02:45 Completed Medication Summary Generic Name Dose Route Start Last Admin Trade Name Chantal PRN Reason Stop Dose Admin Sodium Chloride 1,000 mls @ 100 mls/hr 06/22/21 02:45 06/22/21 02:51 Sodium Chloride 0.9% 1000 Ml IV 07/22/21 02:44 100 mls/hr .Q10H HARPREET Administration Discontinued Medications Generic Name Dose Route Start Last Admin Trade Name Chantal PRN Reason Stop Dose Admin Albuterol/Ipratropium 3 ml 06/22/21 02:32 06/22/21 02:47 Ipratropium/Albuterol Sulfate 3 Ml Ampul.Neb 06/22/21 02:33 3 ml STAT ONE Administration Albuterol/Ipratropium Confirm 06/22/21 02:44 Ipratropium/Albuterol Sulfate 3 Ml Ampul.Neb Administered 06/22/21 02:45 Dose 3 ml IH .STK-MED ONE Albuterol/Ipratropium 3 ml 06/22/21 03:48 Ipratropium/Albuterol Sulfate 3 Ml Ampul.Neb 06/22/21 03:49 STAT ONE Albuterol/Ipratropium Confirm 06/22/21 04:07 Ipratropium/Albuterol Sulfate 3 Ml Ampul.Neb Administered 06/22/21 04:08 Dose 3 ml IH .STK-MED ONE Benzonatate 200 mg 06/22/21 03:50 06/22/21 03:59 Benzonatate 100 Mg Capsule PO 06/22/21 03:51 200 mg STAT ONE Administration Benzonatate Confirm 06/22/21 03:53 Benzonatate 100 Mg Capsule Administered 06/22/21 03:54 Dose 200 mg PO .STK-MED ONE Butorphanol Tartrate 1 mg 06/22/21 04:04 06/22/21 04:17 Butorphanol Tartrate 2 Mg/Ml Vial IV 06/22/21 04:05 1 mg STAT ONE Administration Butorphanol Tartrate Confirm 06/22/21 04:15 Butorphanol Tartrate 2 Mg/Ml Vial Administered 06/22/21 04:16 Dose 2 mg .ROUTE .STK-MED ONE Methylprednisolone Sodium 0 mg 06/22/21 02:32 06/22/21 02:52 Succinate 125 mg/ Sterile IV 06/22/21 02:33 125 mg Water 2 ml STAT ONE Administration Diphenhydramine HCl 25 mg 06/22/21 03:47 06/22/21 04:01 Diphenhydramine Hcl 50 Mg/Ml Vial IV 06/22/21 03:48 25 mg STAT ONE Administration Famotidine 20 mg 06/22/21 02:32 06/22/21 02:52 Famotidine 20 Mg/1 Vial IV 06/22/21 02:33 20 mg STAT ONE Administration Famotidine Confirm 06/22/21 02:47 Famotidine 20 Mg/1 Vial Administered 06/22/21 02:48 Dose 20 mg IV .STK-MED ONE Guaifenesin/Dextromethorphan 10 ml 06/22/21 04:12 06/22/21 04:20 Guaifenesin/D-Methorphan Hb 120 Ml Bottle PO 06/22/21 04:13 10 ml STAT ONE Administration Levofloxacin/Dextrose 500 mg in 100 mls @ 100 mls/hr 06/22/21 03:54 06/22/21 04:09 Levofloxacin 500mg/100ml D5w IV 06/22/21 04:53 100 ml/hr STAT STA 100 mls/hr Administration Levofloxacin/Dextrose Confirm 06/22/21 04:08 Levofloxacin 500mg/100ml D5w Administered 06/22/21 04:09 Dose 500 mg in 100 mls @ ud IV .STK-MED ONE Ketorolac Tromethamine 30 mg 06/22/21 03:49 06/22/21 03:59 Ketorolac Tromethamine 30 Mg/Ml Inj IV 06/22/21 03:50 30 mg STAT ONE Administration Ketorolac Tromethamine Confirm 06/22/21 03:53 Ketorolac Tromethamine 30 Mg/Ml Inj Administered 06/22/21 03:54 Dose 30 mg .ROUTE .STK-MED ONE Methylprednisolone Sodium Succinate Confirm 06/22/21 02:47 Methylprednis Sod Succ 125 Mg/2 Ml Vial Administered 06/22/21 02:48 Dose 125 mg .ROUTE .STK-MED ONE Metoclopramide HCl 10 mg 06/22/21 03:47 06/22/21 03:58 Metoclopramide Hcl 10 Mg/2 Ml Vial IV 06/22/21 03:48 10 mg STAT ONE Administration Metoclopramide HCl Confirm 06/22/21 03:53 Metoclopramide Hcl 10 Mg/2 Ml Vial Administered 06/22/21 03:54 Dose 10 mg .ROUTE .STK-MED ONE Sterile Water Confirm 06/22/21 02:47 Water For Injection,Sterile 10 Ml Vial Administered 06/22/21 02:48 Dose 10 ml IJ .STK-MED ONE Throat Lozenges 15 mg 06/22/21 04:04 06/22/21 04:16 Benzocaine/Menthol 15 Mg Lozenge - Cepacol PO 06/22/21 04:05 15 mg STAT ONE Administration Lab/Rad Data: Laboratory Result Diagrams 06/22/21 02:46 06/22/21 02:46 Laboratory Results 06/22/21 06/22/21 06/22/21 Range/Units 03:28 02:57 02:46 WBC (4.0-10.5) K/mm3 RBC (4.1-5.4) M/mm3 Hgb (12.0-16.0) gm/dl Hct (35-47) % MCV (78-100) fl MCH (26-32) pg MCHC (32-36) g/dl RDW (11.5-14.0) % Plt Count (150-450) K/mm3 MPV (7.5-11.0) fl Gran % (36.0-66.0) % Eos # (Auto) (0-0.5) Absolute Lymphs (auto) (1.0-4.6) Absolute Monos (auto) (0.0-1.3) Lymphocytes % (24.0-44.0) % Monocytes % (0.0-12.0) % Eosinophils % (0.00-5.0) % Basophils % (0.0-0.4) % Absolute Granulocytes (1.4-6.9) Basophils # (0-0.4) D-Dimer (215-500) ng/mL Sodium (137-145) mmol/L Potassium (3.5-5.1) mmol/L Chloride (98-107) mmol/L Carbon Dioxide (22-30) mmol/L Anion Gap (5-15) MEQ/L BUN (7-17) mg/dL Creatinine (0.52-1.04) mg/dL Estimated GFR ML/MIN Glucose (74-106) mg/dL Lactic Acid 1.3 (0.4-2.0) Calcium (8.4-10.2) mg/dL Total Bilirubin (0.2-1.3) mg/dL AST (14-36) U/L ALT (0-35) U/L Alkaline Phosphatase (38-126) U/L Troponin I (0.000-0.034) ng/mL NT-Pro-B Natriuret Pep (0-450) pg/mL Serum Total Protein (6.3-8.2) g/dL Albumin (3.5-5.0) g/dL Lipase (23-300) U/L Serum , Qual NEGATIVE (Negative) Urine Color YELLOW (YELLOW) Urine Appearance SLIGHTLY CLOUDY (CLEAR) Urine pH 6.0 (5-6) Ur Specific [place] 1.014 (1.005-1.025) Urine Protein NEGATIVE (Negative) Urine Ketones NEGATIVE (NEGATIVE) Urine Blood LARGE (0-5) Bryant/ul Urine Nitrite NEGATIVE (NEGATIVE) Urine Bilirubin NEGATIVE (NEGATIVE) Urine Urobilinogen NEGATIVE (0-1) mg/dL Ur Leukocyte Esterase LARGE (NEGATIVE) Urine WBC (Auto) 6-10 (0-5) /HPF Urine RBC (Auto) 3-5 (0-2) /HPF U Epithel Cells (Auto) RARE (FEW) /HPF Urine Bacteria (Auto) NONE (NEGATIVE) /HPF Urine Mucus (Auto) SLIGHT (NEGATIVE) /HPF Urine Culture Reflexed YES (NO) Urine Glucose NEGATIVE (NEGATIVE) mg/dL Influenza Type A Ag (NEGATIVE) Influenza Type B Ag (NEGATIVE) 06/22/21 06/22/21 06/22/21 Range/Units 02:46 02:46 02:46 WBC (4.0-10.5) K/mm3 RBC (4.1-5.4) M/mm3 Hgb (12.0-16.0) gm/dl Hct (35-47) % MCV (78-100) fl MCH (26-32) pg MCHC (32-36) g/dl RDW (11.5-14.0) % Plt Count (150-450) K/mm3 MPV (7.5-11.0) fl Gran % (36.0-66.0) % Eos # (Auto) (0-0.5) Absolute Lymphs (auto) (1.0-4.6) Absolute Monos (auto) (0.0-1.3) Lymphocytes % (24.0-44.0) % Monocytes % (0.0-12.0) % Eosinophils % (0.00-5.0) % Basophils % (0.0-0.4) % Absolute Granulocytes (1.4-6.9) Basophils # (0-0.4) D-Dimer 396 (215-500) ng/mL Sodium (137-145) mmol/L Potassium (3.5-5.1) mmol/L Chloride (98-107) mmol/L Carbon Dioxide (22-30) mmol/L Anion Gap (5-15) MEQ/L BUN (7-17) mg/dL Creatinine (0.52-1.04) mg/dL Estimated GFR ML/MIN Glucose (74-106) mg/dL Lactic Acid (0.4-2.0) Calcium (8.4-10.2) mg/dL Total Bilirubin (0.2-1.3) mg/dL AST (14-36) U/L ALT (0-35) U/L Alkaline Phosphatase (38-126) U/L Troponin I < 0.012 (0.000-0.034) ng/mL NT-Pro-B Natriuret Pep (0-450) pg/mL Serum Total Protein (6.3-8.2) g/dL Albumin (3.5-5.0) g/dL Lipase (23-300) U/L Serum , Qual (Negative) Urine Color (YELLOW) Urine Appearance (CLEAR) Urine pH (5-6) Ur Specific [place] (1.005-1.025) Urine Protein (Negative) Urine Ketones (NEGATIVE) Urine Blood (0-5) Bryant/ul Urine Nitrite (NEGATIVE) Urine Bilirubin (NEGATIVE) Urine Urobilinogen (0-1) mg/dL Ur Leukocyte Esterase (NEGATIVE) Urine WBC (Auto) (0-5) /HPF Urine RBC (Auto) (0-2) /HPF U Epithel Cells (Auto) (FEW) /HPF Urine Bacteria (Auto) (NEGATIVE) /HPF Urine Mucus (Auto) (NEGATIVE) /HPF Urine Culture Reflexed (NO) Urine Glucose (NEGATIVE) mg/dL Influenza Type A Ag NEGATIVE (NEGATIVE) Influenza Type B Ag NEGATIVE (NEGATIVE) 06/22/21 06/22/21 Range/Units 02:46 02:46 WBC 9.6 (4.0-10.5) K/mm3 RBC 4.10 (4.1-5.4) M/mm3 Hgb 11.8 L (12.0-16.0) gm/dl Hct 36.6 (35-47) % MCV 89.3 (78-100) fl MCH 28.8 (26-32) pg MCHC 32.2 (32-36) g/dl RDW 15.2 H (11.5-14.0) % Plt Count 301 (150-450) K/mm3 MPV 10.2 (7.5-11.0) fl Gran % 56.4 (36.0-66.0) % Eos # (Auto) 0.39 (0-0.5) Absolute Lymphs (auto) 2.82 (1.0-4.6) Absolute Monos (auto) 0.96 (0.0-1.3) Lymphocytes % 29.3 (24.0-44.0) % Monocytes % 10.0 (0.0-12.0) % Eosinophils % 4.0 (0.00-5.0) % Basophils % 0.3 (0.0-0.4) % Absolute Granulocytes 5.44 (1.4-6.9) Basophils # 0.03 (0-0.4) D-Dimer (215-500) ng/mL Sodium 137 (137-145) mmol/L Potassium 3.7 (3.5-5.1) mmol/L Chloride 106 (98-107) mmol/L Carbon Dioxide 22 (22-30) mmol/L Anion Gap 12.7 (5-15) MEQ/L BUN 14 (7-17) mg/dL Creatinine 0.70 (0.52-1.04) mg/dL Estimated GFR > 60.0 ML/MIN Glucose 101 (74-106) mg/dL Lactic Acid (0.4-2.0) Calcium 9.1 (8.4-10.2) mg/dL Total Bilirubin 0.40 (0.2-1.3) mg/dL AST 66 H (14-36) U/L ALT 141 H (0-35) U/L Alkaline Phosphatase 94 (38-126) U/L Troponin I (0.000-0.034) ng/mL NT-Pro-B Natriuret Pep 25.4 (0-450) pg/mL Serum Total Protein 7.0 (6.3-8.2) g/dL Albumin 4.2 (3.5-5.0) g/dL Lipase 96 (23-300) U/L Serum , Qual (Negative) Urine Color (YELLOW) Urine Appearance (CLEAR) Urine pH (5-6) Ur Specific [place] (1.005-1.025) Urine Protein (Negative) Urine Ketones (NEGATIVE) Urine Blood (0-5) Bryant/ul Urine Nitrite (NEGATIVE) Urine Bilirubin (NEGATIVE) Urine Urobilinogen (0-1) mg/dL Ur Leukocyte Esterase (NEGATIVE) Urine WBC (Auto) (0-5) /HPF Urine RBC (Auto) (0-2) /HPF U Epithel Cells (Auto) (FEW) /HPF Urine Bacteria (Auto) (NEGATIVE) /HPF Urine Mucus (Auto) (NEGATIVE) /HPF Urine Culture Reflexed (NO) Urine Glucose (NEGATIVE) mg/dL Influenza Type A Ag (NEGATIVE) Influenza Type B Ag (NEGATIVE) - Progress Progress: improved, re-examined Air Movement: good Progress Note: 06/22/21 03:37 pt has heart score of 3 or less , 1 for + fam Hx, 1 for symptoms( although could argue pain is more from just frequent coughing) and 1 for EKG ( read as normal by computer , but appears to have some nonspecific st ) and trop is negative. D dimer is normal. CXR consistent with SP Covid scattered infiltrates . O 2 sat is good. consistent with early Covid long haul or exacerbation of underlying chronic lung Dx. 06/22/21 04:13 having some ear pain and TMs are retracted. but no erythema. 06/22/21 05:11 symptoms resolved after meds.pt will be referred to her pack master to consider covid long haul eval/Tx. Blood Culture(s) Obtained: No Antibiotics given: Yes Counseled pt/family regarding: lab results, diagnosis, need for follow-up, rad results - Departure Departure Disposition: Home Clinical Impression: Nodule of left lung, Pulmonary infiltrates, UTI (urinary tract infection), exacerbation chronic bronchitis Condition: Good Critical Care Time: No Referrals: WILLIAM ALFARO, SIENNA [Primary Care Provider] - Follow up/PCP as directed Instructions: Urinary Tract Infection, Adult (DC), Cough, Adult (DC), Pulmonary Nodule Additional Instructions: follow-up with your Dr. for possible left lung nodule and elevated liver tests. have urine rechecked after completing antibiotics to recheck for blood and signs of infection. See your lung Dr. to adjust your breathing medication regimen since you may be starting long haul covid symptoms or the Covid may have aggravated your COPD/bronchitis. Return meantime if not improving . Prescriptions: Levofloxacin [Levofloxacin 500 MG Tablet] 500 mg PO DAILY #10 tablet Methylprednisolone Packet [Medrol Dosepack] 4 mg PO UD #30 packet
[2021-06-22 03:09] LABS: ALBUMIN 4.2 g/dL (3.5-5.0); ALKALINE PHOSPHATASE 94 U/L (38-126); BLOOD UREA NITROGEN 14 mg/dL (7-17); CHLORIDE 106 mmol/L (98-107); Calcium 9.1 mg/dL (8.4-10.2); Carbon Dioxide 22 mmol/L (22-30); EST GLOMERULAR FILTRATION RATE > 60.0 ML/MIN; Glucose 101 mg/dL (74-106); LIPASE 96 U/L (23-300); NT PRO BNP 25.4 pg/mL (0-450); Potassium 3.7 mmol/L (3.5-5.1); SGOT/AST 66 U/L (14-36); SGPT/ALT 141 U/L (0-35); SODIUM 137 mmol/L (137-145)
[2021-06-22 03:11] LABS: ANION GAP 12.7 MEQ/L (5-15)
[2021-06-22 03:16] LABS: INFLUENZA A NEGATIVE (NEGATIVE); INFLUENZA B NEGATIVE (NEGATIVE)
[2021-06-22 03:37] LABS: Appearance SLIGHTLY CLOUDY (CLEAR); Bilirubin NEGATIVE (NEGATIVE); Blood LARGE Ery/ul (0-5); Epithelial Cells RARE /HPF (FEW); Glucose NEGATIVE (NEGATIVE); Ketones NEGATIVE (NEGATIVE); Leukocyte Esterase LARGE (NEGATIVE); Mucus SLIGHT /HPF (NEGATIVE); Nitrite NEGATIVE (NEGATIVE); Protein,Urine Dip NEGATIVE (Negative); Specific Gravity 1.014 (1.005-1.025); Urobilinogen NEGATIVE mg/dL (0-1)
[2021-06-22] MEDS ORDERED: Reglan 10 MG/2 ML IV ONE (03:47)
[2021-06-22] MEDS ORDERED: BENADRYL 50 MG/ML IV ONE (03:47)
[2021-06-22] MEDS ORDERED: TORAdol 30 mg Injection IV ONE (03:49)
[2021-06-22] MEDS ORDERED: Tessalon Perles 100 MG PO ONE ×2 (03:50→03:53)
[2021-06-22] MEDS ORDERED: Reglan 10 MG/2 ML ONE (03:53)
[2021-06-22] MEDS ORDERED: TORAdol 30 mg Injection ONE (03:53)
[2021-06-22] MEDS ORDERED: Levofloxacin 500MG/100ML D5W 500 MG/100 ML BAG IV STA (03:54)
[2021-06-22] MEDS ORDERED: CEPACOL SORE THROAT LOZENGE PO ONE (04:04)
[2021-06-22] MEDS ORDERED: STADOL 2 MG IV ONE (04:04)
[2021-06-22] MEDS ORDERED: Levofloxacin 500MG/100ML D5W 500 MG/100 ML BAG IV ONE (04:08)
[2021-06-22] MEDS ORDERED: Robitussin-Dm Syrup PO ONE (04:12)
[2021-06-22] MEDS ORDERED: STADOL 2 MG ONE (04:15)
[2021-06-22 05:16] VITALS: O2SAT 99
[2021-06-22 05:40] VITALS: BP 118/64; PULSE 67
--- NOTE | 2021-06-22 09:27 | XRAY ---
Indication: Short of breath. Comparison: February 14, 2021. Portable chest again demonstrates normal heart, lungs, and bony thorax with incidental left mid to lower lung calcified granuloma.
== END 2021-06-22 05:35 | disposition home or self-care (01) ==
LOC: ED 02:17
DX: J42 Unspecified chronic bronchitis (principal); R91.1 Solitary pulmonary nodule; R91.8 Other nonspecific abnormal finding of lung field; N39.0 Urinary tract infection, site not specified; Z86.16 Personal history of COVID-19; R05.9 Cough, unspecified; R07.9 Chest pain, unspecified; F41.9 Anxiety disorder, unspecified; Z72.0 Tobacco use; Z79.52 Long term (current) use of systemic steroids; Z79.899 Other long term (current) drug therapy
CPT/HCPCS: 36000; 36415; 71045; 80053; 81001; 81025; 83605; 83690; 83880; 84484; 85025; 85379; 87086; 87400; 93005; 93041; 94640; 94760; 96374; 96375; 99285; J0595; J1200; J1885; J1956; J2930; A9270-GY

== ENCOUNTER 2023-04-19 21:14 | Emergency (ER) | payer SELFPAY ==
[2023-04-19 21:49] VITALS: TEMP 97.5
[2023-04-19 22:25] VITALS: O2SAT 94
[2023-04-19] MEDS ORDERED: TORAdol 30 mg Injection IM ONE (22:32)
[2023-04-19] MEDS ORDERED: TORAdol 30 mg Injection ONE (22:35)
--- NOTE | 2023-04-19 23:03 | ERPHSYRPT ---
- History of Present Illness Time Seen by Provider: 04/19/23 21:40 Source: patient Exam Limitations: no limitations Patient Subjective Stated Complaint: pt states that last night around 2330 she going down her stairs in the dark and missed a few steps and internally rotated her left ankle. denies other injuries or hitting her head. Triage Nursing Assessment: pt brought to room 9 via wheelchair after standing on right foot on scale for weight acquisition. stood independently to pivot from wheelchair to cot independently. pt is alert and oriented times three, able to speak in complete sentences, able to move all extremities (limited to right ankle/ foot due to injury/ pain), and with resp even and unlabored. see below for ankle assessment. Physician History: 32-year-old female presents to emergency department for evaluation of pain to her left ankle after twisting it while descending steps. Injury occurred last night at approximately 2300. Patient has been applying ice and taking oral analgesics. Patient has not been ambulating on her involved ankle. Patient states the pain has not improved and therefore she is here for for an evaluation. Pain described as an ache that is localized. No radiation. Pain worse with movement palpation. Pain improved with rest. No other injuries reported. Patient voices no other complaints or concerns at this time. Portions of this note were created with voice recognition technology. There may be grammatical, spelling, punctuation or sound alike errors Method of Injury: twisted Occurred: yesterday Quality: aching Severity of Pain-Max: moderate Severity of Pain-Current: mild Lower Extremities Pain: foot: left, ankle: left Modifying Factors: Improves With: movement Associated Symptoms: none Allergies/Adverse Reactions: adhesive tape Allergy (Verified 04/19/23 21:24) Hives paper tape amoxicillin Allergy (Verified 04/19/23 21:24) Tightness of Throat Penicillins Allergy (Verified 04/19/23 21:24) Tightness of Throat tramadol Allergy (Verified 04/19/23 21:24) Swelling of Tongue and Lips Home Medications: Cyclobenzaprine HCl 10 mg [Cyclobenzaprine 10 MG] 10 mg PO TID PRN 04/19/23 [History] Hydroxyzine HCl 25 mg [Atarax 25 mg] 25 mg PO HS PRN 04/19/23 [History] Metoprolol Succinate 25 mg Xl* [Toprol-Xl 25MG Tablets] 25 mg PO DAILY 04/19/23 [History] Hx Tetanus, Diphtheria Vaccination/Date Given: Yes Hx Influenza Vaccination/Date Given: No Hx Pneumococcal Vaccination/Date Given: No Immunizations Up to Date: Yes Travel Risk - International Travel Have you traveled outside of the country in past 3 weeks: No - Coronavirus Screening Are you exhibiting any of the following symptoms?: No Close contact with a COVID-19 positive Pt in past 14-21 Days: No - Vaccine Status Have you recieved a Covid-19 vaccination: No - Review of Systems Constitutional: No Symptoms, No Fever, No Chills Eyes: No Symptoms Ears, Nose, & Throat: No Symptoms Respiratory: No Symptoms, No Cough, No Dyspnea Cardiac: No Symptoms, No Chest Pain, No Edema, No Syncope Abdominal/Gastrointestinal: No Symptoms, No Abdominal Pain, No Nausea, No Vomiting, No Diarrhea Genitourinary Symptoms: No Symptoms, No Dysuria Musculoskeletal: No Symptoms, No Back Pain, No Neck Pain Skin: No Symptoms, No Rash Neurological: No Dizziness, No Focal Weakness, No Sensory Changes Psychological: No Symptoms Endocrine: No Symptoms Hematologic/Lymphatic: No Symptoms Immunological/Allergic: No Symptoms All Other Systems: Reviewed and Negative - Past Medical History Pertinent Past Medical History: Yes Neurological History: No Pertinent History ENT History: No Pertinent History Cardiac History: No Pertinent History Respiratory History: Asthma, Bronchitis, COPD, Pneumonia Endocrine Medical History: No Pertinent History Musculoskeletal History: Other GI Medical History: No Pertinent History History: No Pertinent History Psycho-Social History: Anxiety Female Reproductive Disorders: No Pertinent History Other Medical History: PTSD, severe anxiety, restless leg syndrome - Past Surgical History Past Surgical History: Yes Neuro Surgical History: No Pertinent History Cardiac: No Pertinent History Respiratory: No Pertinent History Gastrointestinal: Cholecystectomy Genitourinary: No Pertinent History Musculoskeletal: No Pertinent History Female Surgical History: Dilation & Curettage, Other Other Surgical History: tubal clamps - Social History Smoking Status: Former smoker How long have you smoked: 19 years Exposure to second hand smoke: Yes Drug Use: none Patient Lives Alone: No Significant Family History: no pertinent family hx - Female History Hx Last Menstrual Period: 04/14/23 Hx Now: No - Nursing Vital Signs Nursing Vital Signs: Initial Vital Signs Temperature 97.5 F 04/19/23 21:30 Pulse Rate 105 H 04/19/23 21:30 Respiratory Rate 20 04/19/23 21:30 Blood Pressure 152/98 04/19/23 21:30 O2 Sat by Pulse Oximetry 100 04/19/23 21:30 Pain Scale Pain Intensity 10 - Physical Exam General Appearance: no apparent distress, alert Eyes, Ears, Nose, Throat Exam: moist mucous membranes Neck Exam: non-tender, supple Cardiovascular/Respiratory Exam: chest non-tender, normal breath sounds, regular rate/rhythm, no respiratory distress Gastrointestinal/Abdominal Exam: non-tender, soft, guarding Back Exam: normal inspection, No vertebral tenderness Hips Exam: bilateral: non-tender, normal inspection, normal range of motion, no evidence of injury Legs Exam: bilateral leg: non-tender, normal inspection, normal range of motion, no evidence of injury Knees Exam: bilateral knee: non-tender, normal inspection, normal range of motion, no evidence of injury Ankle Exam: right ankle: non-tender, normal inspection, normal range of motion, no evidence of injury, left ankle: pain, soft tissue tenderness Foot Exam: right foot: non-tender, normal inspection, normal range of motion, no evidence of injury, left foot: pain, soft tissue tenderness, bilateral foot: other (Tenderness to palpation along the lateral aspect of the left foot and ankle. The involved extremity is neurovascular intact distally. Compartments are soft. Cap refill less than 2 seconds.) Neuro/Tendon Exam: normal sensation, normal motor functions Mental Status Exam: alert, oriented x 3, cooperative Skin Exam: normal color, warm, dry SpO2 Interpretation: normal SpO2: 94 O2 Delivery: Room Air - Course Nursing assessment & vital signs reviewed: Yes - Radiology Exams Ankle X-ray Interpretation: Teleradiologist Report (Small calcaneal heel spur. Calcification at the distal attachment of the Achilles tendon. No fracture dislocation) Ordered Tests: Active Orders 24 hr Category Date Time Status ANKLE (3 VIEWS) Stat Exams 04/19/23 21:33 Ordered FOOT (MINIMUM 3 VIEWS) Stat Exams 04/19/23 21:33 Ordered Medication Summary Discontinued Medications Generic Name Dose Route Start Last Admin Trade Name Freq PRN Reason Stop Dose Admin Ketorolac Tromethamine 30 mg 04/19/23 22:32 04/19/23 22:36 Ketorolac Tromethamine 30 Mg/Ml Inj IM 04/19/23 22:33 30 mg STAT ONE Administration Ketorolac Tromethamine Confirm 04/19/23 22:35 Ketorolac Tromethamine 30 Mg/Ml Inj Administered 04/19/23 22:36 Dose 30 mg .ROUTE .STK-MED ONE - Progress Progress: improved Progress Note: 32-year-old female presents to our ED for evaluation of left ankle and foot pain. Patient inverted her left ankle yesterday night. Physical exam reveals tenderness along the left ankle and left lateral foot. Overlying soft tissue intact. The involved extremity is neurovascular tact distally. Compartments are soft cap refill less than 2 seconds. X-ray negative for fracture dislocation. No acute findings. Patient received Toradol for pain medication. The involved ankle immobilized. Patient given bilateral crutches. A referral to the orthopedic clinic was provided. Patient voices no other complaints or concerns at this time. Portions of this note were created with voice recognition technology. There may be grammatical, spelling, punctuation or sound alike errors Complexity of problems addressed is low acute uncomplicated No critical care time Complex of data reviewed and analyzed is moderate. Test ordered test reviewed. Results analyzed and correlated clinically. Risk of complication and or risk morbidity/mortality patient management is moderate. A prescription for Toradol forwarded to patient's pharmacy. Vital stable. Patient referred to the orthopedic clinic for follow-up. Time s pent to discharge patient is approximately 15 minutes. Plan of care established for shared decision making. No social determinants of health present impede follow-up. Portions of this note were created with voice recognition technology. There may be grammatical, spelling, punctuation or sound alike errors 04/19/23 23:08 Counseled pt/family regarding: diagnosis, need for follow-up, rad results - Departure Departure Disposition: Home Clinical Impression: Sprain of foot, left, Left ankle sprain, Heel spur Condition: Stable Critical Care Time: No Referrals: WILLIAM ALFARO NP [Primary Care Provider] - Follow up/PCP as directed Additional Instructions: Discharge/Care Plan JEAN PIERREDEWEYONEL was seen on 04/19/23 in the Emergency Room. The patient was counseled regarding Diagnosis,Lab results, Imaging studies, need for follow up and when to return to the Emergency Room. Prescriptions given: Discharge Note I have spoken with the patient and/or caregivers. I have explained the patient's condition, diagnosis and treatment plan based on the information available to me at this time. I have answered the patient's and/or caregiver's questions and addressed any concerns. The patient and/or caregivers have as good understanding of the patient's diagnosis, condition and treatment plan as can be expected at this point. The vital signs have been stable. The patient's condition is stable and appropriate for discharge from the emergency department. The patient will pursue further outpatient evaluation with the primary care physician or other designated or consulting physician as outlined in the discharge instructions. The patient and/or caregivers are agreeable to this plan of care and follow-up instructions have been explained in detail. The patient and/or caregivers have received these instruction. The patient/and or caregivers are aware that any significant change in condition or worsening of symptoms should prompt an immediate return to this or the closest emergency department or call 911. Prescriptions: Ketorolac Trometh 10 mg Tab [TORAdol 10 MG TABLET] 10 mg PO TID 5 Days #15 tablet Outpatient Orders: Ortho Referral Time Frame: 1 Day, Facility: [facility], Location: [facility]
[2023-04-19 23:04] VITALS: BP 113/80; PULSE 82; RESP 18
--- NOTE | 2023-04-20 10:12 | XRAY ---
CLINICAL HISTORY:pain COMPARISON:None TECHNIQUE:X-ray left ankle AP, lateral and oblique views. FINDINGS: Bone density appears normal. No fracture or bony abnormality seen. No lytic or sclerotic bony lesion seen. The ankle joint shows intact articular congruence with intact joint space. Visualized small joints of the foot appear normal. No soft tissue abnormality noted. A small calcaneal spur is noted. An incidental note is made of calcification of the distal attachment of the Achilles tendon. IMPRESSION: Small calcaneal spur with calcification of distal attachment of Achilles tendon. No acute osseous pathology identified. DISCLAIMER:A subtle bone abnormality or fracture may not be readily apparent on x-rays, thus clinical correlation and further imaging including follow up CT, MRI, or follow up x-rays are advised as needed. Electronically Signed by: Tim Camara MD. (04/19/2023 22:51:51 EST)
--- NOTE | 2023-04-20 10:12 | XRAY ---
CLINICAL HISTORY:pain COMPARISON:None TECHNIQUE:X-ray left foot AP, oblique, and lateral 3 views. FINDINGS: Normal bone mineral density noted. No definite fracture is visible. No lytic or sclerotic bony lesion seen. The cortical margins of the osseous structures are within normal limits. Normal metatarsophalangeal and interphalangeal joint spaces. Articular margins are intact. Soft tissues appear unremarkable. A small calcaneal spur is noted. An incidental note is made of calcification of distal achilles tendon. IMPRESSION: Small calcaneal spur with calcification noted along distal attachment of Achilles tendon. No acute pathology is identified in the left foot. DISCLAIMER:A subtle bone abnormality or fracture may not be readily apparent on x-rays, thus clinical correlation and further imaging including follow up CT, MRI, or follow up x-rays are advised as needed. Electronically Signed by: Tim Camara MD. (04/19/2023 22:42:47 EST)
== END 2023-04-19 23:32 | disposition home or self-care (01) ==
LOC: ED 21:14
DX: S93.602A Unspecified sprain of left foot, initial encounter (principal); S93.402A Sprain of unspecified ligament of left ankle, initial encounter; X50.0XXA Overexertion from strenuous movement or load, initial encounter; M77.32 Calcaneal spur, left foot; Z79.899 Other long term (current) drug therapy; Z28.310 Unvaccinated for COVID-19
CPT/HCPCS: 73610; 73630; 96372; 99283; J1885

== ENCOUNTER 2024-01-25 22:20 | Emergency (ER) | payer OTHER ==
[2024-01-25 22:54] VITALS: RESP 24; TEMP 97.8
[2024-01-25] MEDS ORDERED: TORAdol 30 mg Injection ONE (23:05)
[2024-01-25] MEDS ORDERED: CLEOCIN 150 MG CAPSULE ONE (23:05)
[2024-01-25] MEDS: CLEOCIN 150 MG CAPSULE PO ONE (23:06)
[2024-01-25] MEDS ORDERED: NORCO 10-325 MG ONE (23:06)
[2024-01-25] MEDS: NORCO 10-325 MG PO STA (23:07)
[2024-01-25] MEDS: TORAdol 30 mg Injection IM ONE (23:07)
--- NOTE | 2024-01-25 23:12 | ERPHSYRPT ---
- History of Present Illness Time Seen by Provider: 01/25/24 22:55 Source: patient Exam Limitations: no limitations Patient Subjective Stated Complaint: pt states toothache for the past 3 days Triage Nursing Assessment: pt ambulated into the er; pt is holding left side of the face crying and yelling out; pt is axo x4; c/o toothache; pt states 10/10 pain to left side of mouth; broken tooth present to upper left jaw; hypertensive; no respiratory distress present; skin PDW Physician History: 33-year-old female presents to our ED for evaluation of left upper dental pain. Tooth #13 appears to be cracked carious and with a associated dental abscess. Patient has been experiencing pain for the past 3 days. Pain progressively worse. No trauma no fever no headache no neck pain. Pain described as an ache that is localized. Pain worse with jaw movement and mastication. Palpation/percussion reproduces symptoms as well. No associated lymphadenopathy. Patient is otherwise healthy. Significant other at bedside. They voiced no other complaints or concerns at this time. Portions of this note were created with voice recognition technology. There may be grammatical, spelling, punctuation or sound alike errors Timing/Duration: day(s) (3 days) Severity: moderate Modifying Factors: Improves With: nothing Associated Symptoms: denies symptoms Allergies/Adverse Reactions: adhesive tape Allergy (Verified 01/25/24 22:42) Hives paper tape amoxicillin Allergy (Verified 01/25/24 22:42) Tightness of Throat Penicillins Allergy (Verified 01/25/24 22:42) Tightness of Throat tramadol Allergy (Verified 01/25/24 22:42) Swelling of Tongue and Lips Home Medications: Cyclobenzaprine HCl 10 mg [Cyclobenzaprine 10 MG] 10 mg PO TID PRN 04/19/23 [History] Hydroxyzine HCl 25 mg [Atarax 25 mg] 25 mg PO HS PRN 04/19/23 [History] Metoprolol Succinate 25 mg Xl* [Toprol-Xl 25MG Tablets] 25 mg PO DAILY 04/19/23 [History] Albuterol 2.5 mg/3 ml Neb [Proventil 2.5 mg/3 ml Neb] 2.5 mg IH Q6HPRN PRN 01/25/24 [History] Hx Tetanus, Diphtheria Vaccination/Date Given: Yes Hx Influenza Vaccination/Date Given: No Hx Pneumococcal Vaccination/Date Given: No Travel Risk - International Travel Have you traveled outside of the country in past 3 weeks: No - Emerging Infectious Disease Are you exhibiting symptoms associated with any current EIDs: No - Review of Systems Constitutional: No Symptoms, No Fever, No Chills Eyes: No Symptoms Ears, Nose, & Throat: No Symptoms Respiratory: No Symptoms, No Cough, No Dyspnea Cardiac: No Symptoms, No Chest Pain, No Edema, No Syncope Abdominal/Gastrointestinal: No Symptoms, No Abdominal Pain, No Nausea, No Vomiting, No Diarrhea Genitourinary Symptoms: No Symptoms, No Dysuria Musculoskeletal: No Symptoms, No Back Pain, No Neck Pain Skin: No Symptoms, No Rash Neurological: No Symptoms, No Dizziness, No Focal Weakness, No Sensory Changes Psychological: No Symptoms Endocrine: No Symptoms Hematologic/Lymphatic: No Symptoms Immunological/Allergic: No Symptoms All Other Systems: Reviewed and Negative - Past Medical History Pertinent Past Medical History: Yes Neurological History: No Pertinent History ENT History: No Pertinent History Cardiac History: No Pertinent History Respiratory History: Asthma, Bronchitis, COPD, Pneumonia Endocrine Medical History: No Pertinent History Musculoskeletal History: Other GI Medical History: No Pertinent History History: No Pertinent History Psycho-Social History: Anxiety Female Reproductive Disorders: No Pertinent History Other Medical History: PTSD, severe anxiety, restless leg syndrome - Past Surgical History Past Surgical History: Yes Neuro Surgical History: No Pertinent History Cardiac: No Pertinent History Respiratory: No Pertinent History Gastrointestinal: Cholecystectomy Genitourinary: No Pertinent History Musculoskeletal: No Pertinent History Female Surgical History: Dilation & Curettage, Other Other Surgical History: tubal clamps Significant Family History: no pertinent family hx - Female History Hx Now: No - Social History Smoking Status: Former smoker How long have you smoked: 19 years Exposure to second hand smoke: Yes Drug Use: none Patient Lives Alone: No - Social Determinants of Health Will the patient participate in the screening: Yes Do you worry about a steady place to live?: No Do you have any problems with any of the following?: No known problems In the past 12 months,have you had to go without utilities?: No Transportation Issues: No Has anyone in your support network made you feel unsafe?: No Have you or anyone in your house had to go without enough: No - Nursing Vital Signs Nursing Vital Signs: Initial Vital Signs Pulse Rate 93 H 01/25/24 22:41 Blood Pressure 171/104 01/25/24 22:41 O2 Sat by Pulse Oximetry 97 01/25/24 22:41 Pain Scale Pain Intensity 10 - Physical Exam General Appearance: no apparent distress, alert Eye Exam: PERRL/EOMI, eyes nml inspection Ears, Nose, Throat Exam: normal ENT inspection, pharynx normal, moist mucous membranes Neck Exam: normal inspection, non-tender, supple, full range of motion Respiratory Exam: normal breath sounds, lungs clear, airway intact, No respiratory distress Cardiovascular Exam: regular rate/rhythm, normal heart sounds, normal peripheral pulses Gastrointestinal/Abdomen Exam: soft, normal bowel sounds, No tenderness, No mass Back Exam: normal inspection, normal range of motion, No CVA tenderness, No vertebral tenderness Extremity Exam: normal inspection, normal range of motion, pelvis stable Neurologic Exam: alert, oriented x 3, cooperative, normal mood/affect, sensation nml, No motor deficits Skin Exam: normal color, warm, dry, No rash Lymphatic Exam: No adenopathy SpO2 Interpretation: normal SpO2: 98 O2 Delivery: Room Air - Course Nursing assessment & vital signs reviewed: Yes Ordered Tests: Medication Summary Discontinued Medications Generic Name Dose Route Start Last Admin Trade Name Tuanq PRN Reason Stop Dose Admin Hydrocodone Bitart/Acetaminophen 1 tablet 01/25/24 23:00 Hydrocodone/Acetamin 10-325 Mg Tablet PO 01/25/24 23:01 ONCE STA Clindamycin HCl 300 mg 01/25/24 23:01 Clindamycin Hcl 150 Mg Capsule PO 01/25/24 23:02 STAT ONE Ketorolac Tromethamine 60 mg 01/25/24 23:01 Ketorolac Tromethamine 30 Mg/Ml Inj IM 01/25/24 23:02 STAT ONE - Progress Progress: improved Progress Note: 33-year-old female presents to our ED with dental pain. Physical exam reveals dental abscess carious and missing teeth. Patient will be following up with a dentist. Patient received clindamycin Toradol and Wingate for pain control. A prescription for the same forwarded to patient's pharmacy. Portions of this note were created with voice recognition technology. There may be grammatical, spelling, punctuation or sound alike errors Complexity of problem addressed is moderate acute complicated. No critical care time. Complex of data reviewed and analyzed is moderate. Test ordered test reviewed results analyzed and correlated clinically with history and physical exam. Risk of complication and or risk of morbidity/mortality of patient management is low. Vital stable time spent to discharge patient approximately 15 minutes. Plan of care established for shared decision making. No social determinants of health present to impede follow-up. Portions of this note were created with voice recognition technology. There may be grammatical, spelling, punctuation or sound alike errors 01/25/24 23:13 Counseled pt/family regarding: diagnosis, need for follow-up - Departure Departure Disposition: Home Clinical Impression: Pain, dental, Carious teeth, Dental abscess Condition: Stable Critical Care Time: No Referrals: WILLIAM ALFARO NP [Primary Care Provider] - Follow up/PCP as directed Additional Instructions: Discharge/Care Plan ONEL NAVARRO was seen on 01/25/24 in the Emergency Room. The patient was counseled regarding Diagnosis,Lab results, Imaging studies, need for follow up and when to return to the Emergency Room. Prescriptions given: Discharge Note I have spoken with the patient and/or caregivers. I have explained the patient's condition, diagnosis and treatment plan based on the information available to me at this time. I have answered the patient's and/or caregiver's questions and addressed any concerns. The patient and/or caregivers have as good understanding of the patient's diagnosis, condition and treatment plan as can be expected at this point. The vital signs have been stable. The patient's condition is stable and appropriate for discharge from the emergency department. The patient will pursue further outpatient evaluation with the primary care physician or other designated or consulting physician as outlined in the disch arge instructions. The patient and/or caregivers are agreeable to this plan of care and follow-up instructions have been explained in detail. The patient and/or caregivers have received these instruction. The patient/and or caregivers are aware that any significant change in condition or worsening of symptoms should prompt an immediate return to this or the closest emergency department or call 911. Prescriptions: Hydrocodone/APAP 5/325 [Wingate 5/325 mg] 1 each PO Q6H PRN PRN #10 tablet MDD 4 PRN Reason: Pain Clindamycin HCl 150 mg [Cleocin 150 mg Capsule] 2 cap PO QID 7 Days #56 cap Ketorolac Trometh 10 mg Tab [TORAdol 10 MG TABLET] 10 mg PO TID 5 Days #15 tablet
[2024-01-25 23:42] VITALS: BP 125/93; PULSE 79; O2SAT 97
[2024-01-26] MEDS ORDERED: NORCO 10-325 MG PO PRN (11:14)
[2024-01-26] MEDS ORDERED: NORCO 5/325 MG ONE (12:10)
[2024-01-26] MEDS: NORCO 5/325 MG PO ONE (12:11)
== END 2024-01-25 23:47 | disposition home or self-care (01) ==
LOC: ED 22:20
DX: K02.9 Dental caries, unspecified (principal); K04.7 Periapical abscess without sinus; K08.89 Other specified disorders of teeth and supporting structures; Z79.891 Long term (current) use of opiate analgesic; Z79.899 Other long term (current) drug therapy
CPT/HCPCS: 96372; 99283; J1885; A9270-GY